=== PATIENT | female | born 1935 | race Caucasian/White ===

== ENCOUNTER 2019-05-26 10:33 | Emergency (ER) | payer OTHER ==
[~2019-05-26] VITALS: Ht 167.6 cm; Wt 83.0 kg
[~2019-05-26 10:33] MED LIST: ASPIR 8181 MG PO; B COMPLEX1 TA2 PO; CALCIUM600 M3 PO; COZAAR50 MG PO; DAILY MULTIPLE1 TAB PO; FISH OIL1 CAP PO; HYDROCHLOROTH12.5 M2 PO; LOPRESSOR100 MG PO; METOPROLOL TART25 M1 PO; PROBIOTIC FORMU1 CA1 PO; STOOL SOFTENER100 MG PO; VERAPAMIL HCL120 M2 PO
[2019-05-26 10:42] VITALS: Ht 167.6 cm; Wt 83.0 kg
[2019-05-26 11:16] LABS: BASOPHIL % 0.3 % (0-2); PLATELET COUNT 192 x10^3mcL (130-400); RED CELL DISTRIBUTION WIDTH 13.3 % (11.5-14.5)
[2019-05-26 12:02] LABS: ALKALINE PHOSPHATASE 62 U/L (46-116); ALT/SGPT 23 U/L (14-59); AST/SGOT 21 U/L (15-37); BILIRUBIN TOTAL 0.6 mg/dL (0.20-1.00); CALCIUM 8.7 mg/dL (8.5-10.1); CARBON DIOXIDE 24.2 mmol/L (21-32); CHLORIDE SERUM 109 mmol/L (98-107); CREATININE SERUM 0.9 mg/dL (0.6-1.0); GLUCOSE SERUM 107 mg/dL (74-106); POTASSIUM SERUM 4.3 mmol/L (3.5-5.1); SODIUM SERUM 145 mmol/L (136-145); T4(THYROXINE) 6.3 ug/dL (4.7-13.3); TOTAL PROTEIN, SERUM 7.1 g/dL (6.4-8.2)
[2019-05-26 12:16] LABS: ALBUMIN 3.2 g/dL (3.4-5.0)
[2019-05-26 12:50] VITALS: BP 119/63
== END 2019-05-26 12:50 | disposition home or self-care (01) ==
LOC: ED 10:33
PROVIDERS: Emergency Medicine
DX: R00.1 Bradycardia, unspecified (principal); R42 Dizziness and giddiness; I10 Essential (primary) hypertension; Z98.890 Other specified postprocedural states; Z88.5 Allergy status to narcotic agent
CPT/HCPCS: 36415; 83880; Q0092